=== PATIENT | female | born 1960 | race Caucasian/White ===

== ENCOUNTER 2023-07-18 15:08 | Emergency (ER) | payer OTHER ==
[~2023-07-18] VITALS: Ht 170.2 cm; Wt 50.7 kg
[2023-07-18 17:00] VITALS: BP 138/95
== END 2023-07-18 17:01 | disposition home or self-care (01) ==
LOC: ED 15:08
DX: B34.9 Viral infection, unspecified (principal); Z88.2 Allergy status to sulfonamides
CPT/HCPCS: 99282